=== PATIENT | male | born 1960 | race Caucasian/White ===

== ENCOUNTER 2021-01-25 12:33 | Emergency (ER) | payer OTHER ==
[2021-01-26 20:10] LABS: SARS-CoV-2 NAA Not Detected (Not Detected)
== END 2021-01-25 14:26 | disposition home or self-care (01) ==
LOC: JVIRT 12:33
DX: Z20.822 Contact with and (suspected) exposure to COVID-19 (principal)
CPT/HCPCS: C9803; G2251-GT; Q3014-GT; U0003; U0005